=== PATIENT | female | born 2005 | race Caucasian/White ===

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

== ENCOUNTER 2024-08-25 16:16 | Emergency (ER) | payer SELFPAY ==
[2024-08-25] MEDS ORDERED: Ibuprofen 200 MG TAB ONE (16:52)
[2024-08-25] MEDS ORDERED: Acetaminophen 500 MG TAB ONE (16:52)
== END 2024-08-25 18:47 | disposition home or self-care (01) ==
LOC: ERS 16:16
DX: J10.1 Influenza due to other identified influenza virus with other respiratory manifestations (principal)
CPT/HCPCS: 87428; 99283